=== PATIENT | male | born 1990 | race Caucasian/White ===

== ENCOUNTER 2019-01-30 20:08 | Emergency (ER) | payer SELFPAY | END 2019-01-30 20:15 | disposition left against medical advice (07) | LOC: E/R 20:08 | DX: Z53.21 Procedure and treatment not carried out due to patient leaving prior to being seen by health care provider (principal) ==

== ENCOUNTER 2019-05-18 10:49 | Emergency (ER) | payer MEDICAID ==
[2019-05-18 11:14] LABS: ADD MAN DIFF? NO
[2019-05-18 11:25] LABS: WHITE BLOOD COUNT 9.8 10^3/ul (4.8-10.8)
[2019-05-18 11:25] LABS: BASOPHILS % 0.3 % (0.0-2.0); EOSINOPHILS # 0.1 10^3/ul (0.0-0.5); EOSINOPHILS % 0.7 % (0.0-7.0); HEMATOCRIT 44.4 % (42.0-52.0); HEMOGLOBIN 16.1 g/dl (14.0-18.0); LYMPHOCYTES # 3.1 10^3/ul (0.8-2.9); MEAN CORPUSCULAR HEMOGLOBIN 30.3 pg (29.0-33.0); MEAN CORPUSCULAR HGB CONC 36.3 g/dl (32.0-37.0); MEAN CORPUSCULAR VOLUME 83.5 fl (82.0-101.0); MEAN PLATELET VOLUME 9.2 fl (7.4-10.4); MONOCYTE # 0.9 10^3/ul (0.3-0.9); MONOCYTES % 8.9 % (0.0-11.0); NEUTROPHIL # 5.6 10^3/ul (1.6-7.5); NEUTROPHILS % 57.9 % (39.0-77.0); PLATELET COUNT 287 10^3/UL (140-415); RED BLOOD COUNT 5.32 10^6/ul (4.70-6.10); RED CELL DISTRIBUTION WIDTH 12.6 % (11.5-14.5)
[2019-05-18 11:36] LABS: ANION GAP 11 (5-13); BLOOD UREA NITROGEN 14 mg/dl (7-20); CALCIUM 9.3 mg/dl (8.4-10.2); CARBON DIOXIDE 31 mmol/L (21-31); CHLORIDE 97 mmol/L (97-110); CREATININE 0.84 mg/dl (0.61-1.24); Estimated GFR > 60 mL/min (>60); GLUCOSE 114 mg/dl (70-220); MAGNESIUM 1.4 mg/dl (1.7-2.5); SODIUM 139 mmol/L (135-144)
[2019-05-18 11:41] LABS: POTASSIUM 2.7 mmol/L (3.5-5.1)
[2019-05-18 11:44] LABS: MONOTEST Negative (NEG)
[2019-05-18] MEDS: POTASSIUM CHLORIDE (SR) 20 MEQ TAB PO (12:49)
[2019-05-18] MEDS: MAGNESIUM CHLORIDE (SR) 64 MG TAB PO (12:49)
[2019-05-18] MEDS ORDERED: MAGNESIUM CHLORIDE (SR) 64 MG TAB PO (13:00)
== END 2019-05-18 13:09 | disposition home or self-care (01) ==
LOC: E/R 10:49
DX: J02.9 Acute pharyngitis, unspecified (principal); E87.6 Hypokalemia; E83.42 Hypomagnesemia; R05 Cough
CPT/HCPCS: 36415; 71045; 80048; 83735; 85025; 86308; 99284-25